=== PATIENT | female | born 1985 | race African-American/Black ===

== ENCOUNTER → 2016-12-31 | Outpatient (CLI) | payer OTHER ==
--- NOTE | 2016-12-31 18:55 | RAD ---
HISTORY: Contusion of left knee Study: 3 views of the left knee Comparison: None Findings: No acute fractures or dislocations. Joint spaces are maintained. No knee joint effusion. Soft tissues are unremarkable. IMPRESSION: 1. No acute abnormality of the left knee. Reported By:
== END ==
LOC: RAD 18:03
PROVIDERS: ATTEND Obstetrics & Gynecology Obstetrics
DX: S80.02XA Contusion of left knee, initial encounter (principal); X58.XXXA Exposure to other specified factors, initial encounter
CPT/HCPCS: 73560